=== PATIENT | female | born 1995 | race Caucasian/White ===

== ENCOUNTER 2019-11-10 19:26 | Emergency (ER) | payer OTHER, SELFPAY ==
[2019-11-10 19:32] VITALS: BP 130/82; PULSE 78; RESP 18; TEMP 36.6; O2SAT 100
[2019-11-10 21:55] VITALS: BP 118/96; PULSE 75; RESP 16; O2SAT 97
[2019-11-10 23:01] LABS: Alanine Aminotransferase 22 IU/L (<35); Albumin 5.2 g/dL (3.5-5.0); Albumin Globulin Ratio 1.5 (1.0-2.8); Alkaline Phosphatase 60 U/L (38-126); Aspartate Aminotransferase 27 IU/L (14-36); BUN Creatinine Ratio 26.7 (6-22); Bilirubin Total 0.2 mg/dL (0.2-1.3); Blood Urea Nitrogen 16 mg/dL (7-17); Calcium 10.1 mg/dL (8.4-10.2); Carbon Dioxide 25 mmol/L (22-32); Chloride 102 mmol/L (98-107); Estimated Glomerular Filt Rate > 60.0 mL/min (>60); Globulin 3.5 g/dL (1.7-4.1); Glucose 96 mg/dL (70-100); HEMOLYSIS < 15 (0-50); Potassium 4.2 mmol/L (3.4-5.1); Sodium 139 mmol/L (137-145); Total Protein 8.7 g/dL (6.3-8.2)
[2019-11-10 23:13] LABS: Troponin I < 0.012 ng/mL (0.01-0.034)
--- NOTE | 2019-11-10 23:33 | ED_ITS ---
HPI - Chest Pain General Chief Complaint: Chest Pain Stated Complaint: chest tightness Time Seen by Provider: 11/10/19 23:21 Source: patient Mode of arrival: Ambulatory Limitations: no limitations History of Present Illness HPI narrative: 24-year-old woman with mild anxiety otherwise healthy presents with chest pain and that has been persistent over the last 3-4 days. It's worse with moving and deep breathing is reproducible with palpation along the left sternal border. She describes it as sharp and waxing and waning. It is not associated with activity, she denies fever,cough. cold. chills, diaphoresis, vom iting, diarrhea, lower extremity edema. She has no history of asymmetric lower extremity swelling Related Data Home Medications Medication Instructions Recorded Confirmed vit-iron fum-folic ac #0 07/15/17 03/03/18 [Mynatal] ferrous gluconate 1 tab QDAY #0 12/10/17 03/03/18 Previous Rx's Medication Instructions Recorded Breast Pump - Double Electric units #1 12/30/17 norethindrone (contraceptive) 0.35 0.35 mg PO DAILY #28 tab 03/03/18 mg tablet Allergies Allergy/AdvReac Type Severity Reaction Status Date / Time No Known Allergies Allergy Uncoded 03/03/18 11:00 Review of Systems Review of Systems Narrative: All systems reviewed and are unremarkable except as noted in HPI and below Patient History Medical History Depression (Resolved) (spontaneous vaginal delivery) (Resolved) Social History Smoking Status: Former smoker alcohol intake: never substance use type: does not use Smoking Status: Former smoker Substance Use Type: marijuana Exam Narrative Exam Narrative: General: Healthy appearing, in no acute distress. Able to give a complete and coherent history. Well-nourished well-developed HEENT: Moist mucous membranes, normal sclera with reactive pupils, Neck: No JVD, supple Respiratory: Lungs are clear to auscultation, no wheezing no rales no rhonchi. Full and symmetrical air movement Chest: Tenderness along the left sternal border at costochondral angles. Pain is reproduced with palpation Cardiac: Regular rate and rhythm no murmurs no bruits Abdomen: Soft nontender good bowel tones, no flank pain Skin: Warm and dry, no rashes Neurologic: Grossly neurologically intact with no obvious asymmetries or abnormalities Extremities: No trauma, well perfused Psych: Cooperative, appropriate insight and affect Initial Vital Signs Initial Vital Signs: Vital Signs Temperature 97.9 F 11/10/19 19:32 Pulse Rate 78 11/10/19 19:32 Respiratory Rate 18 11/10/19 19:32 Blood Pressure 130/82 11/10/19 19:32 Pulse Oximetry 100 11/10/19 19:32 Course Orders Ordered: ED Orders 11/10/19 22:43 CMP [Comprehensive Metabolic Panel] Stat Trop I [Troponin I] Stat Vital Signs Vital signs: Vital Signs - 8 hr 11/10/19 19:32 11/10/19 21:55 11/10/19 23:47 Temperature 97.9 F Pulse Rate 78 75 62 Respiratory Rate 18 16 18 Blood Pressure 130/82 111/89 Blood Pressure [Left Arm] 118/96 H Pulse Oximetry 100 97 98 MDM - Chest Pain Lab Data Attestation: I reviewed the patient's lab results. Result diagrams: 11/10/19 22:43 Labs: Lab Results 11/10/19 Range/Units 22:43 Sodium 139 (137-145) mmol/L Potassium 4.2 (3.4-5.1) mmol/L Chloride 102 (98-107) mmol/L Carbon Dioxide 25 (22-32) mmol/L BUN 16 (7-17) mg/dL Creatinine 0.60 (0.52-1.04) mg/dL Estimated GFR > 60.0 (>60) mL/min BUN/Creatinine Ratio 26.7 H (6-22) Glucose 96 (70-100) mg/dL Calcium 10.1 (8.4-10.2) mg/dL Total Bilirubin 0.2 (0.2-1.3) mg/dL AST 27 (14-36) IU/L ALT 22 (<35) IU/L Alkaline Phosphatase 60 (38-126) U/L Troponin I < 0.012 (0.01-0.034) ng/mL Total Protein 8.7 H (6.3-8.2) g/dL Albumin 5.2 H (3.5-5.0) g/dL Globulin 3.5 (1.7-4.1) g/dL Albumin/Globulin Ratio 1.5 (1.0-2.8) ECG Data Attestation: I personally reviewed and interpreted this ECG as follows: Interpretation: Normal sinus rhythm at a rate of 78 with normal axis no ST T wave changes no acute ischemia MDM Narrative Medical decision making narrative: Clinical presentation and history is most consistent with costochondritis. No evidence of acute coronary syndrome, pulmonary emboli, pneumonia, pneumothorax, shingles Discharge Plan Departure Patient Disposition: Home Clinical Impression: Costalchondritis Discharge Date/Time: 11/10/19 23:48 Instructions: DI for Costochondritis Activity Restrictions/Additional Instructions: Thank you for coming in today. I think your concerns about your chest pain or very appropriate. I'm very pleased to let you know that your EKG looks completely normal as is your blood work. On your physical exam you do appear to have costochondritis I've included some instructions on what costochondritis is. If you're having enough pain taking 2 ibuprofen will certainly help without pain. This typically is a self limited condition and will go away by itself. It is okay to move, you're not going to make anything worse. If you notice new or changing symptoms please feel free to return to the emergency room and I'm happy to re-evaluate Prescriptions: No Action vit-iron fum-folic ac [Mynatal] 1 EACH capsule Qty: 0 RF: 0 ferrous gluconate 324 MG tablet 1 tab QDAY Qty: 0 RF: 0 Breast Pump - Double Electric Qty: 1 RF: 0 norethindrone (contraceptive) 0.35 mg tablet 0.35 mg PO DAILY Qty: 28 RF: 11 Referrals: Connie Brower DO [Primary Care Provider] -
[2019-11-10 23:47] VITALS: BP 111/89; PULSE 62; RESP 18; O2SAT 98
== END 2019-11-10 23:48 | disposition home or self-care (01) ==
PROVIDERS: Emergency Provider Emergency Medicine; Family Provider Family Medicine; PCP Family Medicine
DX: M94.0 Chondrocostal junction syndrome [Tietze] (principal)
CPT/HCPCS: 36415; 80053; 84484; 93005; 93010; 99283; 99284

== ENCOUNTER 2020-05-01 20:36 | Emergency (ER) | payer OTHER, SELFPAY ==
[2020-05-01 20:43] VITALS: BP 137/91; PULSE 138; RESP 22; TEMP 37.7; O2SAT 100; BMI 27.4
[2020-05-01 21:30] VITALS: PULSE 108
--- NOTE | 2020-05-01 21:38 | PC.NURSE ---
patient moved from room 13 to room 10 so that she could be monitored more close. provider aware.
[2020-05-01 21:46] LABS: Add Manual Diff / Slide Review NO; Basophils Absolute Auto 100 /uL (0-100); Basophils Percent Auto 0.9 % (0-2); Eosinophils Absolute Auto 0 /uL (0-450); Eosinophils Percent Auto 0.6 % (2-4); Hemoglobin 12.9 g/dL (12.0-16.0); Lymphocytes Absolute Auto 1200 /uL (1100-4500); Lymphocytes Percent Auto 18.2 % (25-40); Mean Corpuscular HGB Conc 33.2 % (30-36); Mean Corpuscular Volume 90.6 fL (80-100); Monocytes Absolute Auto 1000 /uL (0-900); Monocytes Percent Auto 15.3 % (3-14); Neutrophils Absolute Auto 4200 /uL (1500-7000); Platelet Count 250 X10^3/uL (150-400); Red Blood Cell Count 4.31 X10^6/uL (4.0-5.2); Red Cell Distribution Width 12.5 % (11.6-14.8); White Blood Cell Count 6.4 X10^3/uL (4.5-11.0)
[2020-05-01] MEDS: SODIUM CHLORIDE 0.9% 1,000 ML 1000 ML IV (21:49)
[2020-05-01 22:00] VITALS: BP 143/93; PULSE 117; RESP 22; TEMP 37.3; O2SAT 98
[2020-05-01 22:01] VITALS: PULSE 84; RESP 8; O2SAT 98
[2020-05-01 22:01] LABS: BUN Creatinine Ratio 18.9 (6-22); Blood Urea Nitrogen 10 mg/dL (7-17); Calcium 10.1 mg/dL (8.4-10.2); Carbon Dioxide 22 mmol/L (22-32); Chloride 104 mmol/L (98-107); Estimated Glomerular Filt Rate > 60.0 mL/min (>60); Glucose 103 mg/dL (70-100); HEMOLYSIS < 15 (0-50); Magnesium 1.9 mg/dL (1.6-2.3); Potassium 3.5 mmol/L (3.4-5.1); Sodium 137 mmol/L (137-145)
[2020-05-01 22:02] LABS: C-Reactive Protein Quant < 0.5 mg/dL (<1.0)
--- NOTE | 2020-05-01 22:07 | ED.URI ---
HPI - URI/Sore Throat General Chief Complaint: Upper Respiratory Symptoms Stated Complaint: HEADACHE SORE THROAT CHEST TIGHTNESS Time Seen by Provider: 05/01/20 20:47 Source: patient Mode of arrival: Ambulatory Limitations: no limitations History of Present Illness HPI Narrative: 25F non smoker with history of anxiety presents with her significant other and the chief complaint of headache, sore throat, dry hacking cough, and low grade fever over the evening. She had been out of town and just flew home from [place] on the weekend. No known exposure to persons positive for COVID19. She frequently gets high HR with anxiety. SHe denies much in the way of shortness of breath. She has no GI symptoms such as N/V/D. MD Complaint: fever, cough and sore throat Onset (ago): hour(s) Duration: constant Severity: moderate Relieving factors: nothing Exacerbating factors: nothing Description of mucous: clear Able to tolerate fluids by mouth: Yes Context: recent travel Associated symptoms: fever, myalgias, headache, sore throat and cough Treatments prior to arrival: none Related Data Home Medications Medication Instructions Recorded Confirmed vit-iron fum-folic ac #0 07/15/17 03/03/18 [Mynatal] ferrous gluconate 1 tab QDAY #0 12/10/17 03/03/18 Previous Rx's Medication Instructions Recorded Breast Pump - Double Electric units #1 12/30/17 norethindrone (contraceptive) 0.35 0.35 mg PO DAILY #28 tab 03/03/18 mg tablet Allergies Allergy/AdvReac Type Severity Reaction Status Date / Time No Known Allergies Allergy Uncoded 05/01/20 20:47 Review of Systems Constitutional Constitutional: Reports body ache(s), Reports chills, Denies fatigue, Reports fever(s), Denies frequent falls, Denies lethargy and Denies weakness Eyes Eyes: Denies change in vision, Denies eye discharge, Denies irritation and Denies loss of vision ENT Ears, Nose, Mouth, and Throat: Denies change in voice, Denies dizziness, Denies neck pain, Reports sore throat and Denies throat swelling Cardiovascular Cardiovascular: Denies chest pain, Denies irregular heart rhythm, Denies lightheadedness, Denies palpitations, Denies dyspnea, Denies dyspnea on exertion and Denies orthopnea Respiratory Respiratory: Reports cough, Denies dyspnea, Denies dyspnea on exertion and Denies wheezing Gastrointestinal Gastrointestinal: Denies abdominal pain, Denies change in bowel habits, Denies diarrhea, Denies nausea and Denies vomiting Musculoskeletal Musculoskeletal: Denies neck pain and Denies numbness Integumentary/Breasts Skin/Breast: Denies pruritus, Denies erythema, Denies rash and Denies wounds Neurologic Neurologic: Denies behavioral changes, Denies confusion, Denies dizziness, Denies frequent falls, Denies loss of vision, Denies numbness and Denies weakness Psychiatric Psychiatric: Denies anxiety, Denies behavioral changes, Denies confusion, Denies depression, Denies homicidal ideation and Denies suicidal ideation Endocrine Endocrine: Denies fatigue, Denies flushing and Denies palpitations Hematologic/Lymphatic Hematologic/Lymphatic: Denies easy bruising Allergic/Immunologic Allergic/Immunologic: Denies urticaria, Denies throat swelling and Denies wheezing Patient History Medical History Depression (Resolved) (spontaneous vaginal delivery) (Resolved) Social History Smoking Status: Former smoker alcohol intake: never substance use type: does not use Smoking Status: Former smoker Substance Use Type: marijuana Exam Narrative Exam Narrative: GENERAL: [25] year old patient appears stated age. Well-nourished, well-developed patient, in mild distress. Anxious HEAD: Atraumatic. Normocephalic. EYES: Pupils equal round and reactive. Extraocular motions intact. No scleral icterus. No injection or drainage. ENT: Nose without bleeding, purulent drainage. Throat without erythema, tonsillar hypertrophy or exudate. Airway patent. NECK: Trachea midline. Non tender CARDIOVASCULAR: Tachycardic with regular rhythm without murmurs, gallops, or rubs. RESPIRATORY: Clear to auscultation. Breath sounds equal bilaterally. No wheezes, rales, or rhonchi. GASTROINTESTINAL: Abdomen soft, non-tender, nondistended. EXTREMITIES: No edema or joint tenderness. BACK: Nontender without deformity or crepitance. No flank tenderness. NEURO: AOx3. SKIN: No rash or erythema of visible areas Initial Vital Signs Initial Vital Signs: Vital Signs Temperature 99.9 F H 05/01/20 20:43 Pulse Rate 138 H 05/01/20 20:43 Respiratory Rate 22 05/01/20 20:43 Blood Pressure 137/91 H 05/01/20 20:43 Pulse Oximetry 100 05/01/20 20:43 Course Course Course Narrative: After fluids and allowing her to relax her heart rate descends into the 90s, it bumped back up while having the discussion about her positive [place] it resolved Orders Ordered: ED Orders 05/01/20 21:30 Basic Metabolic Panel Stat C-Reactive Protein Quant Stat Complete Blood Count AUTO DIFF Stat D Dimer Stat Magnesium Stat Procalcitonin Stat Discontinued Medications Diltiazem HCl (Cardizem) 10 mg IV NOW ONE Stop: 05/01/20 21:53 Last Admin: 05/01/20 23:04 Dose: Not Given Documented by: ALFREDO Sodium Chloride (Normal Saline 0.9%) 1,000 mls @ 1,000 mls/hr IV BOLUS ONE Stop: 05/01/20 22:16 Last Infusion: 05/01/20 23:04 Dose: 0 mls/hr Documented by: Admin: 05/01/20 21:49 Dose: 1,000 mls/hr Documented by: KARIE Vital Signs Vital signs: Vital Signs - 8 hr 05/01/20 20:43 05/01/20 21:30 05/01/20 22:00 Temperature 99.9 F H 99.1 F Pulse Rate 138 H 108 H 117 H Respiratory Rate 22 22 Blood Pressure 137/91 H 143/93 H Pulse Oximetry 100 98 05/01/20 22:01 05/01/20 22:34 05/01/20 23:31 Temperature 100.3 F H Pulse Rate 84 124 H 128 H Respiratory Rate 8 L 18 16 Blood Pressure 131/88 128/83 Pulse Oximetry 98 94 99 MDM - URI/Sore Throat Lab Data Result diagrams: 05/01/20 21:30 05/01/20 21:30 Labs: Lab Results 05/01/20 05/01/20 05/01/20 Range/Units 21:30 21:30 21:30 WBC 6.4 (4.5-11.0) X10^3/uL RBC 4.31 (4.0-5.2) X10^6/uL Hgb 12.9 (12.0-16.0) g/dL Hct 39.0 (36-46) % MCV 90.6 (80-100) fL MCH 30.0 (26-34) PG MCHC 33.2 (30-36) % RDW 12.5 (11.6-14.8) % Plt Count 250 (150-400) X10^3/uL Neut % (Auto) 65.0 (50-75) % Lymph % (Auto) 18.2 L (25-40) % [place] % (Auto) 15.3 H (3-14) % Eos % (Auto) 0.6 L (2-4) % Baso % (Auto) 0.9 (0-2) % Neut # (Auto) 4200 (9324-9937) /uL Lymph # (Auto) 1200 (4885-6458) /uL [place] # (Auto) 1000 H (0-900) /uL Eos # (Auto) 0 (0-450) /uL Baso # (Auto) 100 (0-100) /uL D-Dimer (<230) ng/mL Sodium 137 (137-145) mmol/L Potassium 3.5 (3.4-5.1) mmol/L Chloride 104 (98-107) mmol/L Carbon Dioxide 22 (22-32) mmol/L BUN 10 (7-17) mg/dL Creatinine 0.53 (0.52-1.04) mg/dL Estimated GFR > 60.0 (>60) mL/min BUN/Creatinine Ratio 18.9 (6-22) Glucose 103 H (70-100) mg/dL Calcium 10.1 (8.4-10.2) mg/dL Magnesium 1.9 (1.6-2.3) mg/dL C-Reactive Protein < 0.5 (<1.0) mg/dL Procalcitonin < 0.05 (<0.5) ng/mL COVID-19 PCR 05/01/20 05/01/20 05/01/20 Range/Units 21:30 21:30 21:30 WBC (4.5-11.0) X10^3/uL RBC (4.0-5.2) X10^6/uL Hgb (12.0-16.0) g/dL Hct (36-46) % MCV (80-100) fL MCH (26-34) PG MCHC (30-36) % RDW (11.6-14.8) % Plt Count (150-400) X10^3/uL Neut % (Auto) (50-75) % Lymph % (Auto) (25-40) % [place] % (Auto) (3-14) % Eos % (Auto) (2-4) % Baso % (Auto) (0-2) % Neut # (Auto) (2038-7571) /uL Lymph # (Auto) (5301-7679) /uL [place] # (Auto) (0-900) /uL Eos # (Auto) (0-450) /uL Baso # (Auto) (0-100) /uL D-Dimer < 200 (<230) ng/mL Sodium (137-145) mmol/L Potassium (3.4-5.1) mmol/L Chloride (98-107) mmol/L Carbon Dioxide (22-32) mmol/L BUN (7-17) mg/dL Creatinine (0.52-1.04) mg/dL Estimated GFR (>60) mL/min BUN/Creatinine Ratio (6-22) Glucose (70-100) mg/dL Calcium (8.4-10.2) mg/dL Magnesium (1.6-2.3) mg/dL C-Reactive Protein (<1.0) mg/dL Procalcitonin (<0.5) ng/mL COVID-19 PCR Cancelled Positive H Point of Care Testing Test Results Negative Urine Dip Bedside Urine Glucose Negative Bedside Urine Bilirubin - Negative Bedside Urine Ketone + 15 Urine Specific [place] 1.010 Bedside Urine Occult Blood +/- Bedside Urine pH 7.0 Bedside Urine Protein - Negative Bedside Urine Urobilinogen - Negative Bedside Urine Nitrite - Negative Bedside Urine Leukocytes - Negative Esterase Discharge Plan Departure Patient Disposition: Home Clinical Impression: COVID-19 Discharge Date/Time: 05/01/20 23:31 Instructions: Coronavirus Disease 2019 Activity Restrictions/Additional Instructions: *You have been diagnosed with [ COVID-19] *What to do: * per recommendations from the CDC and the [facility] Department of Health * stay home except to get medical care. Restrict activities outside your home, except for getting medical care. Do not go to work, school, or public areas. Avoid using public transportation, ride sharing, or taxis. * separate yourself from other people in your home. * call ahead before visiting your doctor * Wear a facemask * Cover your coughs and sneezes * Clean your hands often * Avoid sharing household items * Clean all high-touch services every day * Monitor your symptoms and seek prompt medical attention if your illness is worsening, particularly with difficulty in breathing. Discussed continuing home isolation * for individuals with symptoms who are confirmed or suspected cases of COVID-19 and are directed to care for themselves at home, discontinue home isolation under the following conditions: 1. At least 72 hours have passed since recovery, defined as resolution of fever without the use of fever reducing medications, and improvement in respiratory symptoms (cough, shortness of breath) AND, 2. At least 10 days have passed since symptoms 1st appeared Individuals with laboratory confirmed COVID-19 who have not had any symptoms may discontinue home isolation when at least 7 days have passed since the date of their 1st COVID-19 diagnostic test and have had no subsequent illness Prescriptions: No Action vit-iron fum-folic ac [Mynatal] 1 EACH capsule Qty: 0 RF: 0 ferrous gluconate 324 MG tablet 1 tab QDAY Qty: 0 RF: 0 Breast Pump - Double Electric Qty: 1 RF: 0 norethindrone (contraceptive) 0.35 mg tablet 0.35 mg PO DAILY Qty: 28 RF: 11 Referrals: Connie Brower DO [Primary Care Provider] -
[2020-05-01 22:11] LABS: D Dimer < 200 ng/mL (<230)
[2020-05-01 22:13] LABS: Procalcitonin < 0.05 ng/mL (<0.5)
[2020-05-01 22:34] VITALS: BP 131/88; PULSE 124; RESP 18; O2SAT 94
[2020-05-01 23:31] VITALS: BP 128/83; PULSE 128; RESP 16; TEMP 37.9; O2SAT 99
[2020-05-02 11:04] LABS: COVID19 -Nasal RAPID POSITIVE (Negative)
== END 2020-05-01 23:31 | disposition home or self-care (01) ==
PROVIDERS: Emergency Provider Emergency Medicine; Family Provider Family Medicine; PCP Family Medicine
DX: U07.1 COVID-19 (principal)
CPT/HCPCS: 36415; 80048; 81003; 81025; 83735; 84145; 85025; 85379; 86140; 87635; 93005; 93010; 96360; 99284

== ENCOUNTER 2020-05-06 17:42 | Emergency (ER) | payer OTHER, SELFPAY ==
[2020-05-06] VITALS (8 sets, daily range): BP systolic 106–130; BP diastolic 66–90; PULSE 79–134; RESP 16–28; TEMP 36.8; O2SAT 99–100; BMI 26.5
[2020-05-06] MEDS: LORazepam 2 MG/ML INJ 0.5 MG IV (18:21)
[2020-05-06] MEDS: SODIUM CHLORIDE 0.9% 500 ML 1000 ML IV (18:21)
--- NOTE | 2020-05-06 18:25 | ED.CHESTPAIN ---
HPI - Chest Pain <BARRERA Mike - Last Filed: 05/06/20 19:27> General Chief Complaint: Chest Pain Stated Complaint: Covid Positive, Chest discomfort Time Seen by Provider: 05/06/20 17:43 Source: patient Mode of arrival: Ambulatory Limitations: no limitations History of Present Illness HPI narrative: This is a 25 year female, occasional smoker, who test positive for cope with on 05/02/20 presents to ED with chief complain of intermittent left side and substernal chest tightness and she rates as 5-6/10. Patient reports occasionally she has difficult time taking a deep breath with deep inhalation but denies much of short of breath. Patient reports decreased appetite and p.o. intake of fluids and solid foods, feeling fatigued and dry mouth. Patient denies fever for last 5 days. Patient reports ongoing congestion but denies cough, sore throat, GI symptoms. Patient has been exposed to known Covid 19 positive and flew back from on 04/28/20 before last ED visit for an evaluation for Covid. Patient reports has history of anxiety and takes Lexapro daily and has Ativan at home but she has not taken with concerns for decreasing heart rate too much. Patient states she has known tachycardia in the past with anxiety. Patient denies taking control pill, calf pain or swelling, recent surgery, previous history of DVT or PE. Related Data Home Medications Medication Instructions Recorded Confirmed vit-iron fum-folic ac #0 07/15/17 03/03/18 [Mynatal] ferrous gluconate 1 tab QDAY #0 12/10/17 03/03/18 escitalopram oxalate mg 05/06/20 Previous Rx's Medication Instructions Recorded Breast Pump - Double Electric units #1 12/30/17 Allergies Allergy/AdvReac Type Severity Reaction Status Date / Time No Known Drug Allergies Allergy Verified 05/06/20 18:24 Review of Systems <BARRERA Mike - Last Filed: 05/06/20 19:27> Review of Systems Narrative: General: Denies fever, chills, (+) fatigue, (+) malaise, sweats. HEENT: Denies sinus pain, ear pain, sore throat, difficulty swallowing, dizziness. Respiratory: Denies dyspnea, cough, wheezing, hemoptysis, sputum. (+) congestion. Cardiovascular: See HPI Gastrointestinal: Denies nausea, vomiting, abdominal pain, diarrhea, constipation, melena, (+) decreased appetite. : Denies dysuria, frequency, incontinence, hematuria, urinary retention. Musculoskeletal: Denies weakness, joint pain or bony pain. Skin: Denies rash, skin lesions, or other. Neurologic: Denies weakness, headache, numbness, change in speech, confusion, seizures, incoordination. Psychiatric: No concerning psychosocial issues. 12-point review of systems is negative except for those stated above. Patient History <BARRERA Mike - Last Filed: 05/06/20 19:27> Medical History (Updated 05/06/20 @ 19:16 by BARRERA Mike) Anxiety (Acute) Depression (Resolved) (spontaneous vaginal delivery) (Resolved) Tachycardia (Acute) Social History (Updated 05/06/20 @ 18:43 by BARRERA Mike) Smoking Status: Current some day smoker alcohol intake: never substance use type: does not use Smoking Status: Former smoker Substance Use Type: marijuana Exam <BARRERA Mike - Last Filed: 05/06/20 19:27> Narrative Exam Narrative: GEN: Alert, oriented x 3, well appearing and nourished, and in no acute distress. Head: Normal cephalic, atraumatic. No scalp or temporal tenderness, palpable mass or rash. EYES: Pupils are equal, round, and reactive to light and accommodation. Extraocular muscles are intact bilaterally. There is no subconjunctival hemorrhage, exudate and sclera non-icteric. ENT: Nose without bleeding, purulent discharge or deviation. Mucous membrane dry, no mucosal lesion. Throat without erythema, tonsillar hypertrophy or exudate. Uvula in midline, airway patent. Neck: Trachea in midline. No JVD, non-tender without lymphadenopathy. No masses or thyroid megaly. Supple, non-tender and no meningeal signs. CARDIAC: Normal rhythm with tachy rate and without murmurs, gallops, or rubs. No chest wall tenderness. No peripheral edema, cyanosis or pallor. Capillary refill is less than 2 seconds. RESPIRATORY: Lungs are clear to auscultate bilaterally. Respiration 22-24/min with room air oxygen in 100%. No cough, wheezes, rales, or rhonchi. No stridor, respiratory distress, increase work of breathing, or accessary muscle used. ABD: Abdomen soft, nontender and non-distended. No guarding or rebound tenderness to palpate. Bowel sounds are normal in all 4 quadrants. There is no palpable masses or organomegaly. EXT: Full painless ROM of all extremities with no loss of sensation, strength, effusion or edema. SKIN: Warm, dry, normal color for patient. No erythema, lesions or rash over visible areas. BACK: Nontender without deformity or crepitance. No flank tenderness. NEUROLOGICAL: Alert and oriented to place, time and person. Sensation and motor function intact bilaterally. No facial droops, dysphasia. PSYCHIATRIC: Good judgement and reason, without hallucinations, abnormal affect or abnormal behaviors during the examination. Patient is not suicidal. Initial Vital Signs Initial Vital Signs: Vital Signs Temperature 98.2 F 05/06/20 17:45 Pulse Rate 127 H 05/06/20 17:45 Respiratory Rate 18 05/06/20 17:45 Blood Pressure 130/80 05/06/20 17:45 Pulse Oximetry 100 05/06/20 17:45 <Toyin Franz MD - Last Filed: 05/06/20 23:48> Initial Vital Signs Initial Vital Signs: Vital Signs Temperature 98.2 F 05/06/20 17:45 Pulse Rate 127 H 05/06/20 17:45 Respiratory Rate 18 05/06/20 17:45 Blood Pressure 130/80 05/06/20 17:45 Pulse Oximetry 100 05/06/20 17:45 Scores <BARRERA Mike - Last Filed: 05/06/20 19:27> Wells' Criteria for PE Clinical signs and symptoms of DVT: No PE is #1 Dx or equally likely: No Heart rate > 100: Yes Immobilization at least 3 days or surg in previous 4 weeks: No History of PE or DVT: No Hemoptysis: No Malignancy w/Treatment within 6 months or palliative: No Wells' PE Score total: 1.5 Citation:: PE is low risk PERC rule for PE score 1 Course <BARRERA Mike - Last Filed: 05/06/20 19:27> Orders Ordered: ED Orders 05/06/20 18:10 Complete Blood Count AUTO DIFF Stat Comprehensive Metabolic Panel Stat D Dimer Stat Lactate (Lactic Acid) Stat Procalcitonin Stat Troponin & CK Cardiac Panel Stat 05/06/20 18:16 EKG-12 Lead Stat Discontinued Medications Sodium Chloride (Normal Saline 0.9%) 500 mls @ 1,000 mls/hr IV BOLUS ONE Stop: 05/06/20 18:44 Last Infusion: 05/06/20 19:13 Dose: 0 mls/hr Documented by: Admin: 05/06/20 18:21 Dose: 1,000 mls/hr Documented by: ALINE Lorazepam (Ativan) 0.5 mg IV NOW ONE Stop: 05/06/20 18:16 Last Admin: 05/06/20 18:21 Dose: 0.5 mg Documented by: ALINE Vital Signs Vital signs: Vital Signs - 8 hr 05/06/20 17:45 05/06/20 17:55 05/06/20 17:56 Temperature 98.2 F Pulse Rate 127 H 134 H Respiratory Rate 18 16 Blood Pressure 130/80 130/89 Pulse Oximetry 100 100 05/06/20 18:00 05/06/20 18:30 05/06/20 19:00 Temperature Pulse Rate 115 H 97 H 82 Respiratory Rate 28 H 21 17 Blood Pressure 126/90 119/85 117/78 Pulse Oximetry 100 100 100 05/06/20 19:30 05/06/20 19:53 Temperature Pulse Rate 79 91 H Respiratory Rate 22 22 Blood Pressure 106/66 113/70 Pulse Oximetry 100 99 <Toyin Franz MD - Last Filed: 05/06/20 23:48> Orders Ordered: ED Orders 05/06/20 18:10 Complete Blood Count AUTO DIFF Stat Comprehensive Metabolic Panel Stat D Dimer Stat Lactate (Lactic Acid) Stat Procalcitonin Stat Troponin & CK Cardiac Panel Stat 05/06/20 18:16 EKG-12 Lead Stat Discontinued Medications Sodium Chloride (Normal Saline 0.9%) 500 mls @ 1,000 mls/hr IV BOLUS ONE Stop: 05/06/20 18:44 Last Infusion: 05/06/20 19:13 Dose: 0 mls/hr Documented by: Admin: 05/06/20 18:21 Dose: 1,000 mls/hr Documented by: ALINE Lorazepam (Ativan) 0.5 mg IV NOW ONE Stop: 05/06/20 18:16 Last Admin: 05/06/20 18:21 Dose: 0.5 mg Documented by: ALINE Vital Signs Vital signs: Vital Signs - 8 hr 05/06/20 17:45 05/06/20 17:55 05/06/20 17:56 Temperature 98.2 F Pulse Rate 127 H 134 H Respiratory Rate 18 16 Blood Pressure 130/80 130/89 Pulse Oximetry 100 100 05/06/20 18:00 05/06/20 18:30 05/06/20 19:00 Temperature Pulse Rate 115 H 97 H 82 Respiratory Rate 28 H 21 17 Blood Pressure 126/90 119/85 117/78 Pulse Oximetry 100 100 100 05/06/20 19:30 05/06/20 19:53 Temperature Pulse Rate 79 91 H Respiratory Rate 22 22 Blood Pressure 106/66 113/70 Pulse Oximetry 100 99 MDM - Chest Pain <Himanshu BARRERA Edge - Last Filed: 05/06/20 19:27> Differential Diagnosis Differential diagnosis: Likely atypical chest pain and other (anxiety, Covid 19, PE) Medical Records Data Attestation: I reviewed the patient's medical records. Lab Data Result diagrams: 05/06/20 18:10 05/06/20 18:10 Labs: Lab Results 05/06/20 05/06/20 05/06/20 Range/Units 18:10 18:10 18:10 WBC 5.4 (4.5-11.0) X10^3/uL RBC 4.39 (4.0-5.2) X10^6/uL Hgb 13.3 (12.0-16.0) g/dL Hct 39.3 (36-46) % MCV 89.6 (80-100) fL MCH 30.2 (26-34) PG MCHC 33.7 (30-36) % RDW 12.0 (11.6-14.8) % Plt Count 260 (150-400) X10^3/uL Neut % (Auto) 53.0 (50-75) % Lymph % (Auto) 38.3 (25-40) % Morrow % (Auto) 7.1 (3-14) % Eos % (Auto) 1.2 L (2-4) % Baso % (Auto) 0.4 (0-2) % Neut # (Auto) 2900 (8063-7042) /uL Lymph # (Auto) 2100 (7043-9158) /uL Morrow # (Auto) 400 (0-900) /uL Eos # (Auto) 100 (0-450) /uL Baso # (Auto) 0 (0-100) /uL D-Dimer (<230) ng/mL Sodium 138 (137-145) mmol/L Potassium 3.5 (3.4-5.1) mmol/L Chloride 104 (98-107) mmol/L Carbon Dioxide 22 (22-32) mmol/L BUN 13 (7-17) mg/dL Creatinine 0.60 (0.52-1.04) mg/dL Estimated GFR > 60.0 (>60) mL/min BUN/Creatinine Ratio 21.7 (6-22) Glucose 91 (70-100) mg/dL Lactate 1.1 (0.7-2.1) mmol/L Calcium 9.6 (8.4-10.2) mg/dL Total Bilirubin 0.3 (0.2-1.3) mg/dL AST 25 (14-36) IU/L ALT 17 (<35) IU/L Alkaline Phosphatase 57 (38-126) U/L Total Creatine Kinase 70 (30-135) U/L CK-MB (CK-2) TNP CK-MB (CK-2) Rel Index TNP Troponin I < 0.012 (0.01-0.034) ng/mL Total Protein 8.1 (6.3-8.2) g/dL Albumin 5.0 (3.5-5.0) g/dL Globulin 3.1 (1.7-4.1) g/dL Albumin/Globulin Ratio 1.6 (1.0-2.8) Procalcitonin (<0.5) ng/mL 05/06/20 05/06/20 Range/Units 18:10 18:10 WBC (4.5-11.0) X10^3/uL RBC (4.0-5.2) X10^6/uL Hgb (12.0-16.0) g/dL Hct (36-46) % MCV (80-100) fL MCH (26-34) PG MCHC (30-36) % RDW (11.6-14.8) % Plt Count (150-400) X10^3/uL Neut % (Auto) (50-75) % Lymph % (Auto) (25-40) % Morrow % (Auto) (3-14) % Eos % (Auto) (2-4) % Baso % (Auto) (0-2) % Neut # (Auto) (7087-6741) /uL Lymph # (Auto) (5413-3943) /uL Morrow # (Auto) (0-900) /uL Eos # (Auto) (0-450) /uL Baso # (Auto) (0-100) /uL D-Dimer < 200 (<230) ng/mL Sodium (137-145) mmol/L Potassium (3.4-5.1) mmol/L Chloride (98-107) mmol/L Carbon Dioxide (22-32) mmol/L BUN (7-17) mg/dL Creatinine (0.52-1.04) mg/dL Estimated GFR (>60) mL/min BUN/Creatinine Ratio (6-22) Glucose (70-100) mg/dL Lactate (0.7-2.1) mmol/L Calcium (8.4-10.2) mg/dL Total Bilirubin (0.2-1.3) mg/dL AST (14-36) IU/L ALT (<35) IU/L Alkaline Phosphatase (38-126) U/L Total Creatine Kinase (30-135) U/L CK-MB (CK-2) CK-MB (CK-2) Rel Index Troponin I (0.01-0.034) ng/mL Total Protein (6.3-8.2) g/dL Albumin (3.5-5.0) g/dL Globulin (1.7-4.1) g/dL Albumin/Globulin Ratio (1.0-2.8) Procalcitonin < 0.05 (<0.5) ng/mL ECG Data Attestation: I personally reviewed and interpreted this ECG as follows: Prior ECG tracings: available for review Interpretation: Sinus tachycardia rate at 110. Right [place] deviation OR interval 168, QRS duration 88, QT/QTc 326/441 T-wave abnormality in inferior Leads II, III, AVF EKG 05/01/[address] and T wave abnormality in anterolateral leads MDM Narrative Medical decision making narrative: This is a 25-year-old female who presents to ED with intermittent left side and substernal chest tightness who has tested for positive Covid 19 on 05/02/20 with onset of symptoms for last 9 days. Patient had travel from [facility] 8 days ago. Wells criteria for pulmonary embolism was in low risk (1.5) with PERC rule for pulmonary embolism score was 1. Patient has been afebrile for last 5-6 days. Patient is afebrile in ED. heart rate was ranging from 120s to 110s. Normotensive with slightly elevated respiration initially. EKG showed sinus tachycardia rate at 1:10 a.m. with T-wave and normality in inferior leads which was similiar to previous EKG tracing 5 days ago. Unremarkable lab tests including CBC, chemistry. Negative cardiac enzymes, D-dimer <200, normal procalcitonin and lactate. No further imaging test was warranted to rule out PE at this time. X-ray test was deferred since patient had 100% room air O2 sat with clear lung sounds and no leukocytsis. No respiratory distress noted with easy breathing and speaks multiple sentences without difficulty. Patient was medicated with IV Ativan 0.5 mg and 500 mL of normal saline which improved patient's symptoms significantly. Patient reports she is feeling much better at this time. Patient informed that it is okay to take Ativan as needed if she has it at home with tachycardia and or anxiety. Patient's heart rate has decreased to 80s with within normal blood pressure and O2 said at 100% in room air. Patient's symptom is likely due to anxiety. Patient is currently taking Lexapro and reports it is subtherapeutic for her anxiety. Patient advised of the primary care physician about this and other medication options for this. Also, discussed short-term use of Ativan for anxiety management as needed. No further questions were expressed and the patient verbalized understanding in agreement with treatment plan. Strict return precautions were discussed with patient as well. <Toyin Franz MD - Last Filed: 05/06/20 23:48> Lab Data Labs: Lab Results 05/06/20 05/06/20 05/06/20 Range/Units 18:10 18:10 18:10 WBC 5.4 (4.5-11.0) X10^3/uL RBC 4.39 (4.0-5.2) X10^6/uL Hgb 13.3 (12.0-16.0) g/dL Hct 39.3 (36-46) % MCV 89.6 (80-100) fL MCH 30.2 (26-34) PG MCHC 33.7 (30-36) % RDW 12.0 (11.6-14.8) % Plt Count 260 (150-400) X10^3/uL Neut % (Auto) 53.0 (50-75) % Lymph % (Auto) 38.3 (25-40) % Morrow % (Auto) 7.1 (3-14) % Eos % (Auto) 1.2 L (2-4) % Baso % (Auto) 0.4 (0-2) % Neut # (Auto) 2900 (6536-3930) /uL Lymph # (Auto) 2100 (6093-7437) /uL Morrow # (Auto) 400 (0-900) /uL Eos # (Auto) 100 (0-450) /uL Baso # (Auto) 0 (0-100) /uL D-Dimer (<230) ng/mL Sodium 138 (137-145) mmol/L Potassium 3.5 (3.4-5.1) mmol/L Chloride 104 (98-107) mmol/L Carbon Dioxide 22 (22-32) mmol/L BUN 13 (7-17) mg/dL Creatinine 0.60 (0.52-1.04) mg/dL Estimated GFR > 60.0 (>60) mL/min BUN/Creatinine Ratio 21.7 (6-22) Glucose 91 (70-100) mg/dL Lactate 1.1 (0.7-2.1) mmol/L Calcium 9.6 (8.4-10.2) mg/dL Total Bilirubin 0.3 (0.2-1.3) mg/dL AST 25 (14-36) IU/L ALT 17 (<35) IU/L Alkaline Phosphatase 57 (38-126) U/L Total Creatine Kinase 70 (30-135) U/L CK-MB (CK-2) TNP CK-MB (CK-2) Rel Index TNP Troponin I < 0.012 (0.01-0.034) ng/mL Total Protein 8.1 (6.3-8.2) g/dL Albumin 5.0 (3.5-5.0) g/dL Globulin 3.1 (1.7-4.1) g/dL Albumin/Globulin Ratio 1.6 (1.0-2.8) Procalcitonin (<0.5) ng/mL 05/06/20 05/06/20 Range/Units 18:10 18:10 WBC (4.5-11.0) X10^3/uL RBC (4.0-5.2) X10^6/uL Hgb (12.0-16.0) g/dL Hct (36-46) % MCV (80-100) fL MCH (26-34) PG MCHC (30-36) % RDW (11.6-14.8) % Plt Count (150-400) X10^3/uL Neut % (Auto) (50-75) % Lymph % (Auto) (25-40) % Morrow % (Auto) (3-14) % Eos % (Auto) (2-4) % Baso % (Auto) (0-2) % Neut # (Auto) (6074-9948) /uL Lymph # (Auto) (7645-8806) /uL Morrow # (Auto) (0-900) /uL Eos # (Auto) (0-450) /uL Baso # (Auto) (0-100) /uL D-Dimer < 200 (<230) ng/mL Sodium (137-145) mmol/L Potassium (3.4-5.1) mmol/L Chloride (98-107) mmol/L Carbon Dioxide (22-32) mmol/L BUN (7-17) mg/dL Creatinine (0.52-1.04) mg/dL Estimated GFR (>60) mL/min BUN/Creatinine Ratio (6-22) Glucose (70-100) mg/dL Lactate (0.7-2.1) mmol/L Calcium (8.4-10.2) mg/dL Total Bilirubin (0.2-1.3) mg/dL AST (14-36) IU/L ALT (<35) IU/L Alkaline Phosphatase (38-126) U/L Total Creatine Kinase (30-135) U/L CK-MB (CK-2) CK-MB (CK-2) Rel Index Troponin I (0.01-0.034) ng/mL Total Protein (6.3-8.2) g/dL Albumin (3.5-5.0) g/dL Globulin (1.7-4.1) g/dL Albumin/Globulin Ratio (1.0-2.8) Procalcitonin < 0.05 (<0.5) ng/mL Discharge Plan Departure Patient Disposition: Home Clinical Impression: Atypical chest pain, Anxiety, COVID-19 Discharge Date/Time: 05/06/20 20:10 Instructions: DI for Atypical Chest Pain, DI for Anxiety -- Adult, DI for COVID-19 (Suspected or Confirmed ) Activity Restrictions/Additional Instructions: You have been diagnosed with [known COVID-19, atypical chest pain likely due to anxiety. Your vital sign is within normal and oxygenation in room air is 100%. Initially you had tachycardia of 120s but this has improved with small dose of Ativan and IV fluids. All labs are unremarkable including indications for infection, electrolytes, cardiac enzymes, D-dimer.]. What to do: *Take your medications as directed. Please continue with her medications. It is okay to take Ativan that you have as needed if you feel anxious which can increase her heart rate and exacerbate short of breath. *Follow up with your primary care provider by contacting them or through tele medicine. Let them know you were seen in the ED and that we asked you to be seen in follow up. Please continue to self isolate up to 2 weeks from onset of symptoms, resolved Covid symptoms or you have negative Covid test. *Return to ED if you have any new, worsening, or concerning symptoms, such as [worsening or different type of chest pain, breathing difficulty, unable to tolerate fluids, high fever not controlled with [id number] medications, feels like fainting, or any acute concerns]. Prescriptions: No Action vit-iron fum-folic ac [Mynatal] 1 EACH capsule Qty: 0 RF: 0 ferrous gluconate 324 MG tablet 1 tab QDAY Qty: 0 RF: 0 Breast Pump - Double Electric Qty: 1 RF: 0 escitalopram oxalate 20 mg tablet RF: 0 Referrals: [facility] [Outside] <Toyin Franz MD - Last Filed: 05/06/20 23:48> Cosign ED Attending Cosignature Attestation: I was immediately available in the department for consultation throughout this patient's visit. I agree with documentation as above. Toyin Franz MD
[2020-05-06 18:30] LABS: Add Manual Diff / Slide Review NO; Basophils Absolute Auto 0 /uL (0-100); Basophils Percent Auto 0.4 % (0-2); Eosinophils Absolute Auto 100 /uL (0-450); Eosinophils Percent Auto 1.2 % (2-4); Hematocrit 39.3 % (36-46); Hemoglobin 13.3 g/dL (12.0-16.0); Lymphocytes Absolute Auto 2100 /uL (1100-4500); Lymphocytes Percent Auto 38.3 % (25-40); Mean Corpuscular HGB Conc 33.7 % (30-36); Mean Corpuscular Hemoglobin 30.2 PG (26-34); Mean Corpuscular Volume 89.6 fL (80-100); Monocytes Absolute Auto 400 /uL (0-900); Monocytes Percent Auto 7.1 % (3-14); Neutrophils Absolute Auto 2900 /uL (1500-7000); Platelet Count 260 X10^3/uL (150-400); Red Blood Cell Count 4.39 X10^6/uL (4.0-5.2); White Blood Cell Count 5.4 X10^3/uL (4.5-11.0)
[2020-05-06 18:44] LABS: D Dimer < 200 ng/mL (<230)
[2020-05-06 18:45] LABS: Lactate (Lactic Acid) 1.1 mmol/L (0.7-2.1)
[2020-05-06 18:47] LABS: Alanine Aminotransferase 17 IU/L (<35); Albumin Globulin Ratio 1.6 (1.0-2.8); Alkaline Phosphatase 57 U/L (38-126); Aspartate Aminotransferase 25 IU/L (14-36); BUN Creatinine Ratio 21.7 (6-22); Bilirubin Total 0.3 mg/dL (0.2-1.3); Blood Urea Nitrogen 13 mg/dL (7-17); Calcium 9.6 mg/dL (8.4-10.2); Carbon Dioxide 22 mmol/L (22-32); Chloride 104 mmol/L (98-107); Creatine Kinase 70 U/L (30-135); Estimated Glomerular Filt Rate > 60.0 mL/min (>60); Globulin 3.1 g/dL (1.7-4.1); Glucose 91 mg/dL (70-100); HEMOLYSIS < 15 (0-50); Potassium 3.5 mmol/L (3.4-5.1); Sodium 138 mmol/L (137-145); Total Protein 8.1 g/dL (6.3-8.2)
[2020-05-06 18:58] LABS: Troponin I < 0.012 ng/mL (0.01-0.034)
[2020-05-06 18:59] LABS: Procalcitonin < 0.05 ng/mL (<0.5)
--- NOTE | 2020-05-06 19:08 | PC.NURSE ---
Report given to MARY Webster
== END 2020-05-06 20:10 | disposition home or self-care (01) ==
PROVIDERS: Emergency Provider Nurse Practitioner Family; Family Provider Family Medicine; PCP Family Medicine
DX: R07.89 Other chest pain (principal); U07.1 COVID-19; F41.9 Anxiety disorder, unspecified
CPT/HCPCS: 36415; 80053; 82550; 83605; 84145; 84484; 85025; 85379; 93005; 96361; 96374; 99284; J2060